=== PATIENT | male | born 1965 | race Caucasian/White ===

== ENCOUNTER 2021-10-15 23:16 | Emergency (ER) | payer OTHER ==
[~2021-10-15] VITALS: Ht 182.9 cm; Wt 93.4 kg
[~2021-10-15 23:16] MED LIST: ANTOXYBENA LEFTEAR; ASPI325 PO; ASPIR 8181 M1 PO; ATEN50 PO; ATOR40TA PO; ATOR80 PO; Acetaminophen650 M1 PO; BASAGLAR K100 UNIT/1 SC; BUPR75 PO; CEFD300 PO; CLOP75 PO; CYCL10 PO; FAMO20 PO; FENO145 PO; HUMALOG KW100 UNIT/1 SC; HYDACE5 PO; HYDACE5325 PO; IBUP600 PO; IBUP800 PO; ISOMON20 PO; KETO10 PO; LISI5 PO; METF500 PO; METO100ER PO; METO25ER PO; METO50 PO; METPRE4DP PO; NICO21TP; Norco 5-325 Ta1 EACH PO; OMEP20ER PO; OXYACE5T PO; PROM25 PO; Percocet 5-3251 EACH PO; Pravachol40 MG PO; Prinivil10 MG PO; RXANTBENOT LEFTEAR; RXHYD5325 PO; RXSULTRIDS PO; SAXA2.5T; SULTRIDS PO; Zofran Odt4 MG SL
[2021-10-16] MEDS ORDERED: ERYT.5TO LEFTEYE (01:27)
== END 2021-10-16 01:31 | disposition home or self-care (01) ==
LOC: ER 23:16
DX: T15.02XA Foreign body in cornea, left eye, initial encounter (principal); I10 Essential (primary) hypertension; E11.9 Type 2 diabetes mellitus without complications; E78.5 Hyperlipidemia, unspecified; I25.10 Atherosclerotic heart disease of native coronary artery without angina pectoris; G47.33 Obstructive sleep apnea (adult) (pediatric); Z87.891 Personal history of nicotine dependence; Z88.0 Allergy status to penicillin; Z91.018 Allergy to other foods; Z79.4 Long term (current) use of insulin; Z79.899 Other long term (current) drug therapy; Z79.84 Long term (current) use of oral hypoglycemic drugs
CPT/HCPCS: 65222; 99282-25; A9270

== ENCOUNTER 2024-12-30 02:16 | Inpatient (IN) | payer OTHER ==
[2024-12-30] VITALS (14 sets, daily range): BP systolic 116–167; BP diastolic 78–100
[~2024-12-30] VITALS: Ht 182.9 cm; Wt 94.0 kg
[~2024-12-30 02:16] MED LIST changes: +ERYT.5TO LEFTEYE; +PANT40 PO
[2024-12-30] MEDS ORDERED: Nitroglycerin 1 INCH/GM PKT TOP ONE ×2 (02:25→03:50)
[2024-12-30] MEDS ORDERED: Diltiazem HCl 5 MG / ML 5ML Vial IV ONE (02:30)
[2024-12-30] MEDS ORDERED: Digoxin 0.25 MG/ML 2ML Amp IV ONE (02:30)
[2024-12-30] MEDS ORDERED: dilTIAZem HCL 125 MG in Dextrose 5% 100 ML IV SCH (02:35)
[2024-12-30 02:36] LABS: BASOPHILS ABSOLUTE AUTO 0.04 K/mm3 (0.00-0.23); BASOPHILS PERCENT AUTO 1 % (0-2); EOSINOPHILS ABSOLUTE AUTO 0.13 K/mm3 (0.00-0.68); EOSINOPHILS PERCENT AUTO 3 % (0-6); Hematocrit 43.1 % (37.0-53.0); Hemoglobin 15.4 g/dL (13.5-17.5); IMMATURE GRAN ABSOLUTE AUTO 0.01 K/mm3 (0.00-0.10); IMMATURE GRAN PERCENT AUTO 0 % (0-1); LYMPHOCYTES ABSOLUTE AUTO 1.46 K/mm3 (0.84-5.20); LYMPHOCYTES PERCENT AUTO 32 % (21-46); MONOCYTES PERCENT AUTO 7 % (4-13); Mean Corpuscular HGB 29.6 pg (26.0-34.0); Mean Corpuscular HGB Conc 35.7 g/dL (31.5-36.5); Mean Corpuscular Volume 83 fL (80-100); Mean Platelet Volume 10.6 fL (9.1-12.4); NEUTROPHILS ABSOLUTE AUTO 2.64 K/mm3 (1.96-9.15); NEUTROPHILS PERCENT AUTO 58 % (41-73); Platelet Count 134 K/mm3 (150-400); RDW Coefficient Variation 12.7 % (11.7-14.2); Red Blood Cell Count 5.21 M/mm3 (4.30-5.90); White Blood Cell Count 4.58 K/mm3 (4.00-11.30)
[2024-12-30 02:52] LABS: Albumin, Blood 3.4 g/dL (3.4-5.0); Albumin/Globulin Ratio 1.2 (0.8-1.8); Bilirubin, Total 0.8 mg/dL (0.1-1.0); Bun/Creatinine Ratio 17.8 (12.0-20.0); Calcium, Blood 8.5 mg/dL (8.5-10.1); Creatinine, Blood 0.79 mg/dL (0.60-1.20); Globulin, Blood 2.8 g/dL (2.2-4.0); Potassium, Blood 3.6 mmol/L (3.5-5.5); Total Protein, Blood 6.2 g/dL (6.4-8.2)
[2024-12-30 03:51] LABS: Influenza A, PCR NEGATIVE (NEGATIVE); Influenza B, PCR NEGATIVE (NEGATIVE); Resp Syncytial Virus, PCR NEGATIVE (NEGATIVE); SARS-Cov-2 (COVID-19) PCR, MMC NEGATIVE (NEGATIVE)
[2024-12-30] MEDS ORDERED: Ondansetron 4 MG TAB PO PRN (04:05)
[2024-12-30 04:14] LABS: Magnesium, Blood 1.7 mg/dL (1.6-2.4)
[2024-12-30] MEDS ORDERED: Nitroglycerin 0.4 MG SUBL SL PRN (05:20)
[2024-12-30 05:29] LABS: Thyroid Stimulating Hormone 5.58 uIU/mL (0.360-4.800)
[2024-12-30 06:26] LABS: Anti-Xa UFH, PHA Monitoring <0.10 IU/mL; Prothrombin Time Results 10.7 Sec (9.7-11.5)
--- NOTE | 2024-12-30 06:30 | NUR ---
SHIFT SUMMARY/ ASSUMPTION OF CARE @ APPROX 0440 REPORT RECEIVED BY THIS RN FROM ADOLFO HERNANDEZ RN @ APPROX 0429 PT ARRIVED TO PCU O5 @ APPROX 0440 AND SELF TRANSFERRED FROM ER BED TO PCU BED. PT IS A&O X4, ABLE TO MAKE NEEDS KNOWN, OBEYS COMMANDS, MOVING ALL EXTREMITIES WITH PURPOSE, PT AMBULATED IND/ EDUCATED TO CALL BEFORE AMBULATING FOR SAFETY, PT REPOISTONING SELF IN BED, USING CALL LIGHT APPROPRIATELY. SPO2 GREATER THAN 90% ON RA, LUNGS SOUND CLEAR T/O, PT DENIES SOB. CONTINUOUS TELE MONITORING, PT CONVERED FROM AFIB PRIOR TO ARRIVING TO PCU, PT IN SINUS RHYTHM 80 S, PT DENIES CURRENT CHEST P/P/ NITRO PATCH IN PLACE/ PT EDUCATED TO CALL IF CHEST P/P COMES BACK OR CHANGES, PULSES PRESENT T/O, BP STABLE WITH MAP GREATER THAN 65. BOWEL TONES PRESENT IN ALL 4Q, PT DENIES FEELINGS OF NAUSEA OR FEELINGS OF CONSTIPATION. PT HAS NOT VOIDED SINCE ARRIVAL TO THE UNIT. PT REPORTING DIFFICULTY PAYING FOR MEDICATIONS/ STATES HE TOOK HIMSELF OFF HIS MEDICATIONS ABOUT A YEAR AGO DUE TO THE COSTS, BED LOWEST POSITION, CALL LIGHT IN REACH, AWAITING TO GIVE REPORT TO ONCOMING RN.
[2024-12-30] MEDS ORDERED: Dose Adjust by Pharmacy XX STA (06:32)
[2024-12-30] MEDS ORDERED: Heparin Sodium,Porcine/0.5 NS 500 ML IV SCH (06:35)
[2024-12-30] MEDS ORDERED: Potassium Chloride 20 MEQ TabCR PO ONE (07:00)
--- NOTE | 2024-12-30 07:03 | NUR ---
ASSUMPTION NOTE: THIS RN TO ASSUME CARE OF PATIENT. PATIENT IS AROUSABLE RESTING IN BED, BEDSIDE SHIFT REPORT WAS GIVEN, PATIENT DENIED NEEDING ANYTHING AT THIS TIME. HAS CALL LIGHT WITHIN REACH & BED IN LOWEST POSITION.
[2024-12-30] MEDS ORDERED: Metoprolol Tartrate 1 MG/ML 5 ML VIAL IV PRN (07:05)
[2024-12-30] MEDS ORDERED: Magnesium Sulf 2 GM/Water 50ML 50 ML IV ONE (07:15)
[2024-12-30] MEDS ORDERED: Insulin Human Lispro 100 Units/ML 3ML Syringe SC SCH (07:30)
[2024-12-30 07:39] LABS: CHOL/HDL RATIO 6.3; Cholesterol 247 mg/dL (50-200); HDL Cholesterol 39 mg/dL (>39); LDL/HDL RATIO Unable to Calculate; Low Density Lipoprotein Chol Unable to Calculate mg/dL (0-110); Phosphorus, Blood 3.9 mg/dL (2.5-4.9); Triglycerides 484 mg/dL (30-160); Very Low Density Lipoprot Chol Unable to Calculate mg/dL (6-32)
[2024-12-30] MEDS ORDERED: Lisinopril 10 MG Tab PO SCH (09:00)
[2024-12-30] MEDS ORDERED: Famotidine 20 MG Tab PO SCH (09:00)
[2024-12-30] MEDS ORDERED: Atorvastatin 40 MG Tab PO SCH (09:00)
[2024-12-30] MEDS ORDERED: Aspirin 81 MG Chew PO SCH (09:00)
--- NOTE | 2024-12-30 09:01 | NUR ---
corporate ethics officer at bedside: corporate ethics officer rounded and chatted with patient. plan will be to do an angiogram today and possible discharge later today.
--- NOTE | 2024-12-30 10:54 | NUR ---
MD ROUNDED: MD ROUNDED AND TALKED TO PATIENT. ANGIOGRAM TO BE DONE TODAY & PENDING ON RESULTS OF PROCEDURE MD WILL DETERMINE IF DISCHARGE WILL BE TODAY OR NOT. HEPARIN WAS DISCONTINUED PER EMAR.
--- NOTE | 2024-12-30 11:29 | NUR ---
AIRCRAFT ELECTRICAL SYSTEMS SPECIALIST: PATIENT TAKEN DOWN VIA BED TO AIRCRAFT ELECTRICAL SYSTEMS SPECIALIST.
[2024-12-30] MEDS ORDERED: FentaNYL Citrate 50 MCG/ML 2 ML Injection ONE (11:38)
[2024-12-30] MEDS ORDERED: NS 250 ML IV ONE (11:39)
[2024-12-30] MEDS ORDERED: Midazolam HCl 1MG / ML 2ML Vial ONE (11:39)
[2024-12-30] MEDS ORDERED: Heparin Sodium 1000 Units/ML 10ML MDV ONE (11:39)
[2024-12-30] MEDS ORDERED: NS 2,000 ML IV ONE (11:39)
[2024-12-30] MEDS ORDERED: Nitroglycerin 2 MG/20 ML BTL ONE (12:08)
[2024-12-30] MEDS ORDERED: NiCARdipine HCL 1,000 MCG/5 ML SYR ONE (12:16)
[2024-12-30] MEDS ORDERED: Clopidogrel Bisulfate 300 MG TABLET ONE (12:30)
[2024-12-30] MEDS ORDERED: Aspirin 325 MG Tab ONE (12:30)
[2024-12-30] MEDS ORDERED: NS 1,000 ML IV SCH (12:50)
--- NOTE | 2024-12-30 12:58 | NUR ---
ARRIVAL FROM MENAGERIE SUPERINTENDENT: PATIENT ARRIVES BACK TO ROOM FROM MENAGERIE SUPERINTENDENT, RIGHT DEE SITE, IS TENDER, NO HEMATOMA, NO BLEEDING. VITAL SIGNS STABLE.
--- NOTE | 2024-12-30 13:26 | NUR ---
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 patient asked for anti anxiety medications as he was feeling anxious about everything. plan will be to recover site and possible discharge tomorrow.md to place orders.
[2024-12-30] MEDS ORDERED: ALPRAZolam 0.25 MG Tab PO ONE (13:30)
--- NOTE | 2024-12-30 16:29 | NUR ---
SHIFT SUMMARY: PATIENT IS ALERT AND ORIENTED X4 & COOPERATIVE WITH HIS CARE, IS ABLE TO MAKE NEEDS KNOWN AND USES CALL LIGHT APPROPRIATELY. PATIENT SATTING >92% ON ROOM AIR, EVEN & UNLABORED RESPIRATIONS AT REST THROUGHOUT SHIFT. WAS PLACED ON 1 LITER VIA NASAL CANNULA AFTER RETURNING TO THE UNIT AFTER ANGIOGRAM, SATTING IN 80'S WHEN ASLEEP, STATED HE FELT LIKE HE WASN'T ABLE TO TAKE A FULL BREATH WHEN LAYING ON HIS BACK. ON TELE SHOWING SINUS RYTHM WITH RATE IN 80'S. HAD AN ANGIOGRAM DONE WITH RIGHT GROIN ACCESS SITE. IS SOFT NONTENDER & NO HEMATOMA OR BLEEDING AT SITE. WAS GIVEN A ONE TIME ORDER OF ANTI-ANXIETY MEDICATIONS PER PATIENT REQUEST. IS RUNNING NORMAL SALINE PER EMAR. FAMILY AND FRIENDS CAME BY THROUGHOUT SHIFT. DENYING ANY NEEDS AT THIS TIME, HAS CALL LIGHT WITHIN REACH & BED IN LOWEST POSITION.
[2024-12-30] MEDS ORDERED: Apixaban 5 MG Tab PO SCH (21:00)
--- NOTE | 2024-12-30 21:55 | NUR ---
MD CALLED FOR PAIN MEDICATION, X1 ORDER OF OXY AND PRN TYLENOL OBTAINED VIA TELEPHONE ORDER, CONFIRMED WITH READBACK.
[2024-12-30] MEDS ORDERED: OxyCODONE HCL 5 MG TAB PO ONE (22:05)
[2024-12-30] MEDS ORDERED: Acetaminophen 500 MG Tab PO PRN (22:05)
[2024-12-31 01:30] VITALS: BP 131/88
[2024-12-31 04:25] LABS: Hematocrit 40.5 % (37.0-53.0); Hemoglobin 13.9 g/dL (13.5-17.5); Mean Corpuscular HGB 28.7 pg (26.0-34.0); Mean Corpuscular HGB Conc 34.3 g/dL (31.5-36.5); Mean Corpuscular Volume 84 fL (80-100); Mean Platelet Volume 10.5 fL (9.1-12.4); Platelet Count 122 K/mm3 (150-400); RDW Coefficient Variation 12.8 % (11.7-14.2); RDW Standard Deviation 38.7 fL (35.1-46.3); Red Blood Cell Count 4.85 M/mm3 (4.30-5.90); White Blood Cell Count 6.47 K/mm3 (4.00-11.30)
[2024-12-31 04:42] LABS: Bun/Creatinine Ratio 10.3 (12.0-20.0); Calcium, Blood 7.8 mg/dL (8.5-10.1); Creatinine, Blood 0.87 mg/dL (0.60-1.20); Potassium, Blood 3.9 mmol/L (3.5-5.5)
[2024-12-31 05:50] VITALS: BP 121/85
--- NOTE | 2024-12-31 06:18 | NUR ---
PT DEMONSTRATES STABLE BP, PULSES EASILY PALPATED, X1 OXY ORDER ADMINISTERED FOR GENERALIZED DISCOMFORT AT GROIN SITE AREA (R SITE) - SITE WDL, PRN TYLENOL Q6 500MG ALSO ADMINISTERED. PT ABLE TO SLEEP THROUGHOUT NIGHT. NO COMPLAINTS OF CHEST PAIN, ON 1L OF OXYGEN OVERNIGHT. DID NOT NEED HS INSULIN COVERAGE. PT IS PLEASANT AND COOPERATIVE WITH CARE THROUGHOUT SHIFT, ALERT AND ORIENTED, UTILIZES CALL LIGHT APPROPRIATELY.
--- NOTE | 2024-12-31 07:10 | NUR ---
ASSUMPTION NOTE: THIS RN TO ASSUME CARE OF PATIENT. HE IS SLEEPING,EASILY AROUSABLE. DENIED NEEDING ANYTHING THIS TIME, HAS CALL LIGHT WITHIN REACH & BED IN LOWEST POSITION.
[2024-12-31 07:26] VITALS: BP 130/87
[2024-12-31] MEDS ORDERED: Metoprolol Succinate 25 MG TABCR PO SCH (09:00)
[2024-12-31] MEDS ORDERED: Enoxaparin 40 MG/0.4 ML SYR SC SCH (09:00)
[2024-12-31] MEDS ORDERED: Clopidogrel Bisulfate 75 MG Tab PO SCH (09:00)
--- NOTE | 2024-12-31 09:02 | NUR ---
TACH'D UP: PATIENT WENT FOR A WALK AROUND THE UNIT WITH THIS NURSE, PACKAGE DYEING MACHINE OPERATOR CALLED AND NOTIFIED THIS RN THAT PATIENT DID TOUCH INTO THE 140'S WHILE WALKING. PATIENT DENIED FEELING CHEST PAIN OR SHORT OF BREATHING DURING THE INCIDENT AND WALK. WHEN HE GOT BACK INTO THE ROOM HE WENT BACK DOWN INTO THE 80'S. BLOOD PRESSURE TAKEN ONCE BACK IN ROOM & PATIENT STABLE.
[2024-12-31 09:23] LABS: Free Thyroxine 0.81 ng/dL (0.70-1.60)
[2024-12-31 09:25] LABS: Thyroid Stimulating Hormone 3.16 uIU/mL (0.360-4.800); Triiodothyronine, Free 2.35 pg/mL (2.18-3.98)
[2024-12-31] MEDS ORDERED: FAMO20 PO (10:43)
[2024-12-31] MEDS ORDERED: ASPI81CH PO (10:43)
[2024-12-31] MEDS ORDERED: ELIQUIS5 M2 PO (10:43)
[2024-12-31] MEDS ORDERED: CLOP75 PO (10:43)
[2024-12-31] MEDS ORDERED: LIPITOR80 MG PO (10:43)
[2024-12-31] MEDS ORDERED: Prinivil10 MG PO (10:44)
[2024-12-31] MEDS ORDERED: METO25ER PO (10:44)
[2024-12-31] MEDS ORDERED: NITR.4SL SL (10:45)
[2024-12-31] MEDS ORDERED: JARDIANCE10 MG PO (10:45)
[2024-12-31] MEDS ORDERED: METF500 PO (10:45)
--- NOTE | 2024-12-31 10:55 | NUR ---
MD ROUNDED: MD CAME TO BEDSIDE AND ROUNDED ON PATIENT. WENT OVER NEW MEDICATIONS AND PATIENT SET TO DISCHARGE TODAY.
[2024-12-31 11:16] VITALS: BP 148/96
--- NOTE | 2024-12-31 12:00 | NUR ---
DISCHARGE NOTE: PATIENT IS ALERT AND ORIENTED X4, SATTING >92% ON ROOM AIR, DENIED CHEST PAIN/PRESSURE OR FEELING SHORT OF BREATH. IV WAS TAKEN OUT & FRIEND MET HIM AT THE ELEVATORS. PATIENT AWARE TO CALL CARDIOLOGY OFFICE & PRIMARY CARE TO SET UP AN APPOINTMENT. MEDICATIONS WERE SENT OVER TO [facility] PER PATIENT REQUEST. PATIENT AWARE TO NOT DO HEAVY LIFTING OR DRIVING FOR 24-48HRS. HAS PAPERWORK ALONG WITH ALL PERSONAL BELONGIGNS.
== END 2024-12-31 11:45 | disposition home or self-care (01) | DRG 232 ==
LOC: ER 02:16 → ERHOLD 04:03 → PCU 04:03
PROVIDERS: Emergency Medicine; Internal Medicine; Student in an Organized Health Care Education/Training Program; ADMIT Internal Medicine
PROC: 021209W Bypass Coronary Artery, Three Arteries from Aorta with Autologous Venous Tissue, Open Approach (ICD-10-PCS; principal; 2024-12-30)
PROC: 027135Z Dilation of Coronary Artery, Two Arteries with Two Drug-eluting Intraluminal Devices, Percutaneous Approach (ICD-10-PCS; 2024-12-30)
PROC: 06BQ0ZZ Excision of Left Saphenous Vein, Open Approach (ICD-10-PCS; 2024-12-30)
PROC: B2111ZZ Fluoroscopy of Multiple Coronary Arteries using Low Osmolar Contrast (ICD-10-PCS; 2024-12-30)
DX: I21.4 Non-ST elevation (NSTEMI) myocardial infarction (principal); I50.22 Chronic systolic (congestive) heart failure; E11.9 Type 2 diabetes mellitus without complications; E78.5 Hyperlipidemia, unspecified; G47.33 Obstructive sleep apnea (adult) (pediatric); I25.10 Atherosclerotic heart disease of native coronary artery without angina pectoris; I11.0 Hypertensive heart disease with heart failure; R94.6 Abnormal results of thyroid function studies; D69.6 Thrombocytopenia, unspecified; I48.0 Paroxysmal atrial fibrillation; I08.0 Rheumatic disorders of both mitral and aortic valves; Z95.1 Presence of aortocoronary bypass graft; Z91.148 Patient's other noncompliance with medication regimen for other reason; Z88.0 Allergy status to penicillin; Z91.018 Allergy to other foods; Z79.811 Long term (current) use of aromatase inhibitors; Z79.82 Long term (current) use of aspirin; Z79.84 Long term (current) use of oral hypoglycemic drugs; Z79.85 Long-term (current) use of injectable non-insulin antidiabetic drugs; Z79.899 Other long term (current) drug therapy; Z90.49 Acquired absence of other specified parts of digestive tract; Z95.5 Presence of coronary angioplasty implant and graft; Z87.891 Personal history of nicotine dependence; Z99.89 Dependence on other enabling machines and devices
CPT/HCPCS: 0241U; 36415; 71045; 80048; 80053; 80061; 82947; 83036; 83735; 83880; 84100; 84439; 84443; 84481; 84484; 85025; 85027; 85347; 85520; 85610; 85730; 93005; 93010; 93455; 99152; 99153; A9270; C1760; C1769; C1874; C1887; C1894; C8929; C9604; J1160; J1644; J2250; J3010; J3475; J7030; J7050; Q9957; Q9967

== ENCOUNTER → 2025-01-04 | Outpatient (CLI) | payer OTHER ==
[~2025-01-04] MED LIST changes: +ASPI81CH PO; +ELIQUIS5 M2 PO; +JARDIANCE10 MG PO; +LIPITOR80 MG PO; +NITR.4SL SL
[2025-01-04 16:23] LABS: Prothrombin Time Results 10.7 Sec (9.7-11.5)
[2025-01-04 19:22] LABS: Microalb/Creat Ratio UR, Rand 300.901 mg/g (0.000-30.000)
== END | disposition home or self-care (01) ==
LOC: LAB 14:29 → LAB SHORT 14:29
PROVIDERS: Family Medicine
DX: E11.65 Type 2 diabetes mellitus with hyperglycemia (principal); I10 Essential (primary) hypertension; I48.0 Paroxysmal atrial fibrillation
CPT/HCPCS: 82043; 82570; 83036; 84443; 85610

== ENCOUNTER 2025-04-26 18:59 | Inpatient (IN) | payer OTHER ==
[~2025-04-26] VITALS: Ht 182.9 cm; Wt 93.0 kg
[2025-04-26 19:22] LABS: BASOPHILS ABSOLUTE AUTO 0.04 K/mm3 (0.00-0.23); BASOPHILS PERCENT AUTO 1 % (0-2); EOSINOPHILS ABSOLUTE AUTO 0.17 K/mm3 (0.00-0.68); EOSINOPHILS PERCENT AUTO 3 % (0-6); Hematocrit 41.7 % (37.0-53.0); Hemoglobin 14.3 g/dL (13.5-17.5); IMMATURE GRAN ABSOLUTE AUTO 0.01 K/mm3 (0.00-0.10); IMMATURE GRAN PERCENT AUTO 0 % (0-1); LYMPHOCYTES ABSOLUTE AUTO 1.37 K/mm3 (0.84-5.20); LYMPHOCYTES PERCENT AUTO 24 % (21-46); MONOCYTES ABSOLUTE AUTO 0.36 K/mm3 (0.16-1.47); MONOCYTES PERCENT AUTO 6 % (4-13); Mean Corpuscular HGB Conc 34.3 g/dL (31.5-36.5); Mean Corpuscular Volume 85 fL (80-100); NEUTROPHILS ABSOLUTE AUTO 3.79 K/mm3 (1.96-9.15); NEUTROPHILS PERCENT AUTO 66 % (41-73); NRBC ABSOLUTE 0.00 K/mm3 (0.00-0.02); NRBC Auto 0.0 /100 WBC (0.0-0.2); Platelet Count 175 K/mm3 (150-400); RDW Coefficient Variation 13.5 % (11.7-14.2); RDW Standard Deviation 41.6 fL (35.1-46.3)
[2025-04-26 19:44] LABS: Alanine Aminotransfer (ALT/SGP 42.0 U/L (12-78); Albumin, Blood 3.2 g/dL (3.4-5.0); Albumin/Globulin Ratio 1.0 (0.8-1.8); Anion Gap 8.0 mmol/L (3-11); Aspartate Aminotrans (AST/SGOT 25.0 U/L (12-37); Bilirubin, Total 0.8 mg/dL (0.1-1.0); Blood Urea Nitrogen 10.0 mg/dL (8-24); CO2, Blood 23.0 mmol/L (21-32); Calcium, Blood 8.4 mg/dL (8.5-10.1); Chloride, Blood 112.0 mmol/L (98-108); Creatinine, Blood 0.85 mg/dL (0.60-1.20); Globulin, Blood 3.2 g/dL (2.2-4.0); Glucose, Blood 265.0 mg/dL (70-99); Potassium, Blood 3.4 mmol/L (3.5-5.5); Sodium, Blood 140.0 mmol/L (136-145); Total Protein, Blood 6.4 g/dL (6.4-8.2)
[2025-04-26] MEDS ORDERED: Ondansetron HCl 2 MG / ML 2ML Vial IV PRN (22:00)
[2025-04-26 23:19] VITALS: BP 153/104
[2025-04-27 02:28] LABS: BASOPHILS ABSOLUTE AUTO 0.04 K/mm3 (0.00-0.23); BASOPHILS PERCENT AUTO 1 % (0-2); EOSINOPHILS ABSOLUTE AUTO 0.18 K/mm3 (0.00-0.68); EOSINOPHILS PERCENT AUTO 3 % (0-6); Hematocrit 39.0 % (37.0-53.0); Hemoglobin 13.4 g/dL (13.5-17.5); IMMATURE GRAN ABSOLUTE AUTO 0.01 K/mm3 (0.00-0.10); IMMATURE GRAN PERCENT AUTO 0 % (0-1); LYMPHOCYTES ABSOLUTE AUTO 1.45 K/mm3 (0.84-5.20); LYMPHOCYTES PERCENT AUTO 26 % (21-46); MONOCYTES ABSOLUTE AUTO 0.33 K/mm3 (0.16-1.47); MONOCYTES PERCENT AUTO 6 % (4-13); Mean Corpuscular HGB Conc 34.4 g/dL (31.5-36.5); Mean Corpuscular Volume 83 fL (80-100); NEUTROPHILS ABSOLUTE AUTO 3.49 K/mm3 (1.96-9.15); NEUTROPHILS PERCENT AUTO 63 % (41-73); NRBC ABSOLUTE 0.00 K/mm3 (0.00-0.02); NRBC Auto 0.0 /100 WBC (0.0-0.2); Platelet Count 153 K/mm3 (150-400); RDW Coefficient Variation 13.5 % (11.7-14.2); RDW Standard Deviation 41.1 fL (35.1-46.3)
[2025-04-27 02:56] LABS: Alanine Aminotransfer (ALT/SGP 36.0 U/L (12-78); Albumin, Blood 3.2 g/dL (3.4-5.0); Albumin/Globulin Ratio 1.1 (0.8-1.8); Anion Gap 10.0 mmol/L (3-11); Aspartate Aminotrans (AST/SGOT 19.0 U/L (12-37); Bilirubin, Total 1.0 mg/dL (0.1-1.0); Blood Urea Nitrogen 10.0 mg/dL (8-24); CO2, Blood 24.0 mmol/L (21-32); Calcium, Blood 8.2 mg/dL (8.5-10.1); Chloride, Blood 109.0 mmol/L (98-108); Creatinine, Blood 0.99 mg/dL (0.60-1.20); Globulin, Blood 3.0 g/dL (2.2-4.0); Glucose, Blood 271.0 mg/dL (70-99); Magnesium, Blood 1.5 mg/dL (1.6-2.4); Potassium, Blood 3.4 mmol/L (3.5-5.5); Sodium, Blood 140.0 mmol/L (136-145); Thyroid Stimulating Hormone 2.36 uIU/mL (0.360-4.800); Total Protein, Blood 6.2 g/dL (6.4-8.2)
[2025-04-27 03:18] VITALS: BP 118/85
--- NOTE | 2025-04-27 04:56 | NUR ---
SHIFT SUMMARY - PT ARRIVES TO UNIT AT 2255. REPORT RECEIVED FROM FUR REPAIRER. ABLE TO STAND AND PIVOT TO BED WITH SBA FROM STAFF UPON ARRIVAL. BELONGINGS IN PATIENT BELONGING BAGS AT BEDSIDE. PT IS A/OX4, PLEASANT, COOPERATIVE WITH CARE, DENIES PAIN AT THIS TIME. ON RA, SATS ABOVE 92%. REQUIRING 2-3L NC PRN. PT REPORTS ORTHOPNEA FOR APPROX 1 WEEK AND WORSENING SOB. ON CONTINUOUS CARDIAC MONITORING. VSS, BP SLIGHTLY ELEVATED WITH SYSTOLIC PRESSURE IN 150 S. PT INSTRUCTED ON USE OF CALL LIGHT AND TO CALL FOR ASSISTANCE BEFORE GETTING UP FROM BED.
[2025-04-27 07:22] LABS: Prothrombin Time Results 12.2 Sec (9.7-11.5)
[2025-04-27 07:29] VITALS: BP 129/88
[2025-04-27] MEDS ORDERED: Insulin Human Lispro 100 Units/ML 3ML Syringe SC SCH (07:30)
[2025-04-27] MEDS ORDERED: Enoxaparin 40 MG/0.4 ML SYR SC SCH (09:00)
[2025-04-27] MEDS ORDERED: Furosemide 10 MG / ML 2ML Vial IV SCH (09:00)
[2025-04-27] MEDS ORDERED: Heparin Sodium,Porcine/0.5 NS 500 ML IV SCH (10:00)
[2025-04-27] MEDS ORDERED: Mag Sulfate 1 GM/D5% 100ML 100 ML IV ONE (11:00)
[2025-04-27 11:20] VITALS: BP 133/87
--- NOTE | 2025-04-27 12:08 | NUR ---
UPDATE PT SEEN BY CARDIOLOGY, STRESS TEST AND ECHO ORDERED. PT HAD FIRST PROTION OF STRESS TEST DONE AT BEGINNING OF SHIFT AND ECHO DONE. PT STARTED ON HEPARIN GTT PER ORDER. OT REPORTES THAT BREATHING IS IMPROVING AND SWELLING IS BETTER. PT DENIES CHEST PAIN/PRESSURE. PT CONTINUES TO DESAT TO HIGH 80'S IF PT IS TALKING ALOT, EVERT SOB.
[2025-04-27 16:01] VITALS: BP 114/84
--- NOTE | 2025-04-27 19:34 | NUR ---
SHIFT SUMMARY PT A/OX4 AND COOPERATIVE OF CARE. PT ABLE TO EXPRESS NEEDS AND CALLS APPROPIATE. PT INDEPENDENT IN BED AND SBA IN ROOM, TOLERATES WELL. PT VSS THROGHOUT SHIFT WITH O2 SATS IN THE 90'S ON RA. PT SEEN BY CARDIOLOGY AND STRESS TEST ORDERED, SEE STRESS TEST NOTES . PT ONLY REPORTED CHEST PRESSURE AND SOB WHEN STRESS TEST WAS BEING DONE, OTHERWISE NO REPORT SOB OR SHEST PRESSURE. [T HAD REPEAT ECHO DONE TODAY, DECREASE IN EF, SEE ECHO RESULTS.
[2025-04-27 20:37] VITALS: BP 118/81
--- NOTE | 2025-04-27 23:10 | NUR ---
ASSUMPTION OF CARE ASSUMED PT'S CARE AT 1900,PT WIDE AWAKE SITTING UP IN BED.BEDSIDE REPORT COMPLETED,PLAN OF CARE REVIEWED.PT DENIES PAIN,DENIES NEEDS.HEPARIN GTT INFUSING ORDERED.RATE VERIFIED .CALL LIGHT AND PT'S ITEMS WITHIN REACH.MONITORING ONGOING PER CAREPLAN.
[2025-04-28 00:02] VITALS: BP 95/62
[2025-04-28] MEDS ORDERED: Dose Adjust by Pharmacy XX STA ×3 (00:55→14:48)
[2025-04-28 04:05] VITALS: BP 95/61
[2025-04-28 06:22] LABS: Hematocrit 39.8 % (37.0-53.0); Hemoglobin 13.7 g/dL (13.5-17.5); Platelet Count 154 K/mm3 (150-400)
--- NOTE | 2025-04-28 06:27 | NUR ---
PT MONITORED DURING THE SHIFT.NO ACUTE EVENTS NOTED.HEPARIN GTT INFUSING ORDERED.PT USED 3L OF OXYGEN WHILE SLEEPING,MAINTAINED OXYGEN SATURATION >92%.PT SLEEPING AT THIS TIME,EASILY AROUSABLE.PT DENIES PAIN,DENIES NEEDS AT THIS TIME.CALL LIGHT AND PT'S ITEMS WITHIN REACH.MONITORING ONGOING PER CAREPLAN.
[2025-04-28 06:39] LABS: Anion Gap 9.0 mmol/L (3-11); Blood Urea Nitrogen 18.0 mg/dL (8-24); CO2, Blood 27.0 mmol/L (21-32); Calcium, Blood 8.8 mg/dL (8.5-10.1); Chloride, Blood 107.0 mmol/L (98-108); Creatinine, Blood 1.01 mg/dL (0.60-1.20); Glucose, Blood 251.0 mg/dL (70-99); Potassium, Blood 3.6 mmol/L (3.5-5.5); Sodium, Blood 139.0 mmol/L (136-145)
[2025-04-28 07:45] VITALS: BP 107/75
[2025-04-28 12:10] VITALS: BP 117/84
[2025-04-28 15:54] VITALS: BP 115/91
[2025-04-28] MEDS ORDERED: SPIR25 PO (15:58)
[2025-04-28] MEDS ORDERED: LOSA25 PO (15:59)
[2025-04-28] MEDS ORDERED: TORSE20 PO (16:00)
[2025-04-28] MEDS ORDERED: KLOR-CON 1010 ME9 PO (16:01)
--- NOTE | 2025-04-28 16:58 | NUR ---
DISCHARGE UPDATE DISCHARGE PACKET GONE OVER WITH PT AT 1430. PT DISCHARGED AT 1634. PT ABLE TO WALK OUT ON HIS OWN TOLERATED WELL. PT EDUCATED ON DIETS WITH LOW CARB AND TO AVOID SALTS. PT EDUCATED TO KEEP TRACK OF HIS DILY WEIGHT AND BLOOD SUGAR LEVELS. PT VERBALIZED UNDERSTANDING.
== END 2025-04-28 17:31 | disposition home or self-care (01) | DRG 280 ==
LOC: ER 18:59 → PCU 21:58
PROVIDERS: Internal Medicine; Student in an Organized Health Care Education/Training Program; ADMIT Student in an Organized Health Care Education/Training Program
DX: I11.0 Hypertensive heart disease with heart failure (principal); I50.43 Acute on chronic combined systolic (congestive) and diastolic (congestive) heart failure; I21.A1 Myocardial infarction type 2; J96.01 Acute respiratory failure with hypoxia; I25.10 Atherosclerotic heart disease of native coronary artery without angina pectoris; Z95.5 Presence of coronary angioplasty implant and graft; I48.0 Paroxysmal atrial fibrillation; E11.9 Type 2 diabetes mellitus without complications; G47.33 Obstructive sleep apnea (adult) (pediatric); E78.5 Hyperlipidemia, unspecified; Z87.19 Personal history of other diseases of the digestive system; Z91.018 Allergy to other foods; Z88.0 Allergy status to penicillin; Z87.891 Personal history of nicotine dependence; Z79.82 Long term (current) use of aspirin; Z79.02 Long term (current) use of antithrombotics/antiplatelets; Z79.84 Long term (current) use of oral hypoglycemic drugs; E87.6 Hypokalemia; Z99.81 Dependence on supplemental oxygen; E83.42 Hypomagnesemia
CPT/HCPCS: 36415; 36416; 71046; 78452; 80048; 80053; 82947; 83036; 83735; 83880; 84443; 84484; 85014; 85018; 85025; 85049; 85610; 85730; 93005; 93010; 93017; 94762; 96374; 99285-25; A9270; A9500; C8929; J1644; J1938; J2785; J3475; Q9957

== ENCOUNTER 2025-05-31 19:22 | Emergency (ER) | payer OTHER ==
[~2025-05-31] VITALS: Ht 182.9 cm; Wt 88.5 kg
[~2025-05-31 19:22] MED LIST changes: -LIDO700A20 TOP
[2025-05-31 20:20] LABS: BASOPHILS ABSOLUTE AUTO 0.05 K/mm3 (0.00-0.23); BASOPHILS PERCENT AUTO 1 % (0-2); EOSINOPHILS ABSOLUTE AUTO 0.27 K/mm3 (0.00-0.68); EOSINOPHILS PERCENT AUTO 4 % (0-6); Hematocrit 40.4 % (37.0-53.0); Hemoglobin 14.0 g/dL (13.5-17.5); IMMATURE GRAN ABSOLUTE AUTO 0.01 K/mm3 (0.00-0.10); IMMATURE GRAN PERCENT AUTO 0 % (0-1); LYMPHOCYTES ABSOLUTE AUTO 1.77 K/mm3 (0.84-5.20); LYMPHOCYTES PERCENT AUTO 23 % (21-46); MONOCYTES ABSOLUTE AUTO 0.56 K/mm3 (0.16-1.47); MONOCYTES PERCENT AUTO 7 % (4-13); Mean Corpuscular HGB Conc 34.7 g/dL (31.5-36.5); Mean Corpuscular Volume 84 fL (80-100); NEUTROPHILS ABSOLUTE AUTO 4.97 K/mm3 (1.96-9.15); NEUTROPHILS PERCENT AUTO 65 % (41-73); NRBC ABSOLUTE 0.00 K/mm3 (0.00-0.02); NRBC Auto 0.0 /100 WBC (0.0-0.2); Platelet Count 143 K/mm3 (150-400); RDW Coefficient Variation 13.2 % (11.7-14.2); RDW Standard Deviation 40.3 fL (35.1-46.3)
[2025-05-31 20:40] LABS: Alanine Aminotransfer (ALT/SGP 52.0 U/L (12-78); Albumin, Blood 4.1 g/dL (3.4-5.0); Albumin/Globulin Ratio 1.5 (0.8-1.8); Anion Gap 8.0 mmol/L (3-11); Aspartate Aminotrans (AST/SGOT 28.0 U/L (12-37); Bilirubin, Total 1.3 mg/dL (0.1-1.0); Blood Urea Nitrogen 15.0 mg/dL (8-24); CO2, Blood 27.0 mmol/L (21-32); Calcium, Blood 8.9 mg/dL (8.5-10.1); Chloride, Blood 105.0 mmol/L (98-108); Creatinine, Blood 1.06 mg/dL (0.60-1.20); Globulin, Blood 2.7 g/dL (2.2-4.0); Glucose, Blood 201.0 mg/dL (70-99); Potassium, Blood 3.7 mmol/L (3.5-5.5); Sodium, Blood 136.0 mmol/L (136-145); Total Protein, Blood 6.8 g/dL (6.4-8.2)
[2025-06-01] MEDS ORDERED: LIDO700A20 TOP (00:51)
[2025-06-01] MEDS ORDERED: Lidocaine 4% 1 Patch TOP ONE (00:55)
[2025-06-01 01:00] VITALS: BP 115/76
== END 2025-06-01 01:07 | disposition home or self-care (01) ==
LOC: ER 19:22
PROVIDERS: Emergency Medicine
DX: R07.89 Other chest pain (principal); I10 Essential (primary) hypertension; Z59.89 Other problems related to housing and economic circumstances; Z88.0 Allergy status to penicillin; Z79.01 Long term (current) use of anticoagulants; Z88.1 Allergy status to other antibiotic agents; Z79.84 Long term (current) use of oral hypoglycemic drugs; E11.9 Type 2 diabetes mellitus without complications; E78.5 Hyperlipidemia, unspecified; R06.02 Shortness of breath; Z87.891 Personal history of nicotine dependence
CPT/HCPCS: 0202U; 71046; 80053; 83690; 84484; 85025; 93005; 93010; 99284-25

== ENCOUNTER → 2025-05-31 | Outpatient (CLI) | payer OTHER ==
[~2025-05-31] MED LIST changes: +KLOR-CON 1010 ME9 PO; +LIDO700A20 TOP; +LOSA25 PO; +SPIR25 PO; +TORSE20 PO
[2025-05-31 16:07] LABS: Influenza A/2009-H1 Not Detected (NOT DETECT); SARS-Cov-2 (COVID-19), BioFire Not Detected (NOT DETECT)
== END ==
LOC: LAB SHORT 13:20 → LAB 13:20
PROVIDERS: Student in an Organized Health Care Education/Training Program
DX: R07.81 Pleurodynia (principal); R06.02 Shortness of breath
CPT/HCPCS: 0202U